=== PATIENT | male | born 1940 | race African-American/Black ===

== ENCOUNTER 2018-07-23 10:59 | Day surgery (SDC) | payer MEDICARE, OTHER ==
[~2018-07-23 10:59] MED LIST: BESIFLOXACIN HCL 0.6% OPH SUSP 5 ML BOTTLE OS PRN; BUPIVACAINE HCL 0.75% INJ/PF (7.5 MG/1 ML) 10 ML SDV ONE; CHONDR SU A NA/HYALUR INTRAOC KIT (SURGICARE) ONE; CYCLOPENTOLATE 0.2%/PHENYLEPHRINE 1% OPH SOLN 2 ML OS PRN; DORZOLAMIDE HCL 2%/TIMOLOL MALEAT 0.5% OPH SOLN 10 ML OS PRN; EPINEPHRINE INJ/PF 1 MG/1 ML AMPULE ONE; HYALURONIDASE INJ 150 UNIT/1 ML VIAL ONE; KETOROLAC TROMETHAMINE 0.45% 4 DROP/0.4 ML DROPERETTE OS PRN; LIDOCAINE 1%/PHENYLEPHRINE 1.5% 1 ML VIAL ONE; LIDOCAINE 2% INJ-PF (20 MG/ML) 10 ML AMPUL ONE; TETRACAINE HCL 0.5% OPH SOLN 4 ML OS PRN; TOBRAMYCIN SULFATE/DEXAMETH OPH SUSP 2.5 ML ONE; TROPICAMIDE 1% OPH SOLN 3 ML OS PRN; TRYPAN BLUE 0.06 % OPH SOLN 0.5 ML DISP.SYRIN ONE
[2018-07-23] MEDS ORDERED: LIDOCAINE 2% INJ (20 MG/ML) 20 ML MDV ONE (11:11)
[2018-07-23] MEDS ORDERED: MIDAZOLAM 2 MG/2 ML INJ ONE (11:32)
[2018-07-23] MEDS ORDERED: FENTANYL CITRATE INJ/PF 100 MCG/2 ML AMPUL ONE (11:32)
[2018-07-23] MEDS ORDERED: TOBRAMYCIN SULFATE/DEXAMETH OPH OINTMENT 3.5 GM ONE (12:13)
--- NOTE | 2018-07-23 13:10 | EKG REPORT ---
SEVERITY:- ABNORMAL ECG - ATRIAL FIBRILLATION, V-RATE 35-51 INCOMPLETE RBBB AND LAFB BORDERLINE R WAVE PROGRESSION, ANTERIOR LEADS : Confirmed by: Raúl Aguilar MD 23-Jul-2018 13:09:54
== END 2018-07-23 12:50 | disposition home or self-care (01) ==
LOC: SC 10:59
PROVIDERS: ATTEND Internal Medicine
DX: I48.91 Unspecified atrial fibrillation (principal); I45.19 Other right bundle-branch block; I44.4 Left anterior fascicular block
CPT/HCPCS: 93005; 93010; J3490 ×4; A9270; J0171; J3470; J2370; J2250; J3010